=== PATIENT | female | born 1990 | race Caucasian/White ===

== ENCOUNTER 2021-05-14 03:50 | Inpatient (IN) | payer SELFPAY ==
[2021-05-14] VITALS (8 sets, daily range): BP systolic 107–136; BP diastolic 41–76; PULSE 48–77; TEMP 97.7–97.9
[~2021-05-14] VITALS: Ht 175.3 cm; Wt 111.4 kg
[~2021-05-14 03:50] MED LIST: DOXYCYCLINE 10100 MG PO; NORCO 325 MG-51 TAB PO
[2021-05-14 04:34] LABS: COLLECTION METHOD CLEAN CATCH
[2021-05-14 04:37] LABS: BASO # 0.1 K/mm3 (0.0-0.2); BASO % 0.6 % (0.0-2.0); EOS # 0.1 K/mm3 (0.0-0.7); EOS % 0.8 % (0.0-4.0); GRAN % 70.9 % (42.2-75.2); HEMATOCRIT 41.8 % (37.0-47.0); HEMOGLOBIN 13.5 g/dl (12.5-16.0); LYMPH # 2.9 K/mm3 (1.2-3.4); LYMPH % 23.1 % (20.0-51.0); MEAN CELL VOLUME 79 fl (80.0-100.0); MEAN CORPUSCULAR HEMOGLOBIN 25 pg (27-31); MEAN CORPUSCULAR HGB CONC 32 g/dl (33.0-37.0); MONO # 0.5 K/mm3 (0.1-0.6); MONO % 4.2 % (1.7-9.3); PLATELET COUNT 421 K/mm3 (130-400); RED BLOOD COUNT 5.31 M/mm3 (4.10-5.30); REDCELL DISTRIBUTION WIDTH-CV 13.3 % (11.5-14.5)
[2021-05-14 04:45] LABS: MUCOUS Present (NOT PRESENT); PH 5 (5-8); URINE APPEARANCE Hazy (CLEAR/HAZY); URINE BACTERIA None Seen /hpf (NONE SEEN); URINE BILIRUBIN Negative (NEGATIVE); URINE BLOOD Negative (NEGATIVE); URINE COLOR Yellow (YELLOW); URINE GLUCOSE Negative (NEGATIVE); URINE KETONE Negative (NEGATIVE); URINE LEUKOCYTE ESTERASE 1+ (NEGATIVE); URINE NITRATE Negative (NEGATIVE); URINE PROTEIN(semi-quant) Negative (NEGATIVE); URINE RBC 0-2 /hpf (0-2); URINE UROBILINOGEN Negative (NEGATIVE)
[2021-05-14 05:06] LABS: BILIRUBIN,TOTAL 0.9 mg/dL (0.2-1.2); CALCIUM 9.4 mg/dL (8.4-10.2); CREATININE, serum 0.84 mg/dL (0.57-1.11); POTASSIUM 4.1 mmol/L (3.5-4.5); TOTAL PROTEIN 7.7 gm/dL (6.2-8.1)
[2021-05-14] MEDS ORDERED: IBU800 M1 PO (08:09)
--- NOTE | 2021-05-14 09:00 | NUR ---
PT ARRIVES FROM PACU VIA BED. REPORT RECIEVED FROM VINAY WEISS. PT DROWSY BUT AROUSABLE. VITAL SIGNS STABLE. INCISION SITE CDI. DENIES NEEDS AT THIS TIME. CALL LIGHT WITHIN REACH UPON EXITING ROOM.
--- NOTE | 2021-05-14 09:40 | NUR ---
PT UP TO VOID, STEADY GAIT. REPORTS MINIMAL "PAIN AND BURNING" TO ABDOMEN BUT STATES "I FEEL BETTER THAN I HAVE FELT IN DAYS PRIOR TO THIS SURGERY." DENIES DIZZINESS UPON ARRIVAL. VITAL SIGNS STABLE AT THIS TIME. PT DRINKING SPRITE AND WATER AND TOLERATING PO INTAKE WELL. DENIES NEED FOR PAIN CONTROL AT THIS TIME.
--- NOTE | 2021-05-14 13:35 | NUR ---
PT AMBULATING THROUGHOUT ROOM, VOIDS 400CC YELLOW URINE AT THIS TIME. PO PAIN CONTROL ADMINISTERED AT THIS TIME. PT ABLE TO TOLERATE PO FOOD AND DRINKS. DENIES NAUSEA. REPORTS PAIN IS "PRESENT BUT STILL MUCH BETTER THAN BEFORE SURGERY." PT'S MOTHER IS OUT RUNNING [employer] AND WILL BE RETURNING SHORTLY THIS AFTERNOON TO PROVIDE PT A RIDE HOME. PT MAY DC HOME PER LISA DUNHAM.
== END 2021-05-14 15:10 | disposition home or self-care (01) | DRG 743 ==
LOC: COL.ER 03:50 → OB 05:50
PROVIDERS: Student in an Organized Health Care Education/Training Program; ADMIT Student in an Organized Health Care Education/Training Program
PROC: 0UT54ZZ Resection of Right Fallopian Tube, Percutaneous Endoscopic Approach (ICD-10-PCS; principal; 2021-05-14 06:30)
DX: N70.11 Chronic salpingitis (principal); E28.2 Polycystic ovarian syndrome
CPT/HCPCS: G0378; J0690; J1100; J1170; J1885; J2405; J2704; J2710; J3010; J7030; J7120